=== PATIENT | female | born 1995 | race Two or more races ===

== ENCOUNTER 2022-12-25 11:23 | Emergency (ER) | payer OTHER ==
[~2022-12-25] VITALS: Ht 160 cm; Wt 61.2 kg
[2022-12-25] MEDS ORDERED: PRENATABS FA T1 EACH (12:01)
[2022-12-25 13:05] LABS: HEMOGLOBIN 11.5 g/dL (12.0-15.00); MEAN CELL VOLUME 85.8 fL (80.00-100.00); MEAN CORPUSCULAR HEMOGLOBIN 29.8 pg (27.00-32.0); MEAN CORPUSCULAR HGB CONC 34.7 g/dl (32.0-36.0); PLATELET COUNT 220 K/uL (150-450); RED BLOOD COUNT 3.84 M/uL (4.00-6.00); RED CELL DISTRIBUTION WIDTH 13.5 % (11.5-14.5)
[2022-12-25] MEDS ORDERED: TUSSIN100 MG/51 PO (14:28)
[2022-12-25] MEDS ORDERED: XOPENEX CO1.25 MG/0. IH (14:28)
== END 2022-12-25 15:30 | disposition home or self-care (01) ==
LOC: ER 11:23
PROVIDERS: General Practice
DX: J45.909 Unspecified asthma, uncomplicated (principal); R06.02 Shortness of breath; Z3A.21 21 weeks gestation of pregnancy; Z20.822 Contact with and (suspected) exposure to COVID-19

== ENCOUNTER 2023-05-07 09:34 | Inpatient (IN) | payer OTHER ==
[~2023-05-07] VITALS: Ht 160 cm; Wt 68.9 kg
[~2023-05-07 09:34] MED LIST: PRENATABS FA T1 EACH; TUSSIN100 MG/51 PO; XOPENEX CO1.25 MG/0. IH
[2023-05-07] MEDS ORDERED: RINGERS SOLUTION,LACTATED 1,000 ML IV SCH (10:15)
[2023-05-07 10:55] LABS: HEMATOCRIT 34.9 % (36.0-45.00); MEAN CELL VOLUME 86.4 fL (80.00-100.00); MEAN CORPUSCULAR HEMOGLOBIN 29.6 pg (27.00-32.0); MEAN CORPUSCULAR HGB CONC 34.3 g/dl (32.0-36.0); PLATELET COUNT 179 K/uL (150-450); RED BLOOD COUNT 4.05 M/uL (4.00-6.00); RED CELL DISTRIBUTION WIDTH 14.3 % (11.5-14.5)
[2023-05-07 11:02] LABS: URINE APPEARANCE Clear; URINE BILIRRUBIN Negative (NEGATIVE); URINE BLOOD Negative; URINE COLOR Yellow; URINE GLUCOSE Negative (NEGATIVE); URINE LEUKOCYTE Negative; URINE NITRATE Negative; URINE PROTEIN Negative (NEGATIVE); URINE UROBILINOGEN 0.2 E.U./dl
[2023-05-07 11:06] LABS: URINE BACTERIA 57.9 uL (0.0-1933); URINE EPITHELIAL CELLS 6.4 uL (0.0-38.8); URINE WBC 13.4 uL (0.0-23.2)
[2023-05-07 11:15] LABS: URINE RBC 1.4 uL (0.0-20.8)
[2023-05-08] MEDS ORDERED: AMPICILLIN SODIUM 2,000 MG VIAL IV STA (08:03)
[2023-05-08] MEDS ORDERED: OXYTOCIN 500 ML IV ONE (08:15)
[2023-05-08] MEDS ORDERED: RINGERS SOLUTION,LACTATED 1,000 ML IV SCH (08:15)
[2023-05-08] MEDS ORDERED: AMPICILLIN SODIUM 1,000 MG VIAL IV SCH (09:00)
[2023-05-08 09:05] LABS: PH,URINE 5.5 (5.0-8.0); URINE APPEARANCE Clear; URINE BILIRRUBIN Negative (NEGATIVE); URINE BLOOD Moderate; URINE COLOR Yellow; URINE GLUCOSE Negative (NEGATIVE); URINE LEUKOCYTE Negative; URINE NITRATE Negative; URINE PROTEIN Negative (NEGATIVE); URINE UROBILINOGEN 0.2 E.U./dl
[2023-05-08 09:07] LABS: HEMOGLOBIN 11.9 g/dL (12.0-15.00); MEAN CELL VOLUME 86.2 fL (80.00-100.00); MEAN CORPUSCULAR HEMOGLOBIN 29.3 pg (27.00-32.0); PLATELET COUNT 181 K/uL (150-450); RED BLOOD COUNT 4.06 M/uL (4.00-6.00); RED CELL DISTRIBUTION WIDTH 14.2 % (11.5-14.5)
[2023-05-08 09:10] LABS: URINE BACTERIA 55.4 uL (0.0-1933); URINE EPITHELIAL CELLS 13.4 uL (0.0-38.8); URINE RBC 197.3 uL (0.0-20.8)
[2023-05-08 09:31] LABS: ALBUMIN 2.9 gm/dL (3.4-5.0); BILIRUBIN TOTAL 0.68 mg/dL (0.3-1.2); CALCIUM 9.5 mg/dL (8.5-10.1); CREATININE SERUM 0.47 mg/dL (0.55-1.02); GFR 156.66; GLOBULINA 3.5 G/DL (2.4-3.5); POTASSIUM 3.99 mEq/L (3.5-5.1); TOTAL PROTEIN 6.4 gm/dL (6.4-8.2)
[2023-05-08 09:34] LABS: INR < 0.93; PROTHROMBIN TIME 9.8 SECONDS (9.0-11.5)
[2023-05-08] MEDS ORDERED: MORPHINE SULFATE 4 MG/ML VIAL IV ONE (10:45)
[2023-05-08] MEDS ORDERED: MORPHINE SULFATE 4 MG/ML CARTRIDGE IV ONE (14:00)
[2023-05-08] MEDS ORDERED: OXYTOCIN 20 UNITS/1000ML RL PIGGYBAG IV ONE (15:37)
[2023-05-08] MEDS ORDERED: ERYTHROMYCIN BASE 1 GM TUBE OP ONE (15:37)
[2023-05-08] MEDS ORDERED: CHLORHEXIDINE GLUCONATE 120 ML BOTTLE TOP ONE (15:37)
[2023-05-08] MEDS ORDERED: OXYTOCIN 10 UNITS/ML VIAL ONE (15:50)
[2023-05-08] MEDS ORDERED: DOCUSATE SODIUM 100MG CAP PO SCH (21:22)
[2023-05-08] MEDS ORDERED: IBUprofen 400 MG TABLET PO PRN (21:30)
[2023-05-08] MEDS ORDERED: CHLORHEXIDINE GLUCONATE 120 ML BOTTLE TOP SCH (22:15)
[2023-05-08] MEDS ORDERED: OXYTOCIN 10 UNITS/ML VIAL IM STA (22:15)
[2023-05-08] MEDS ORDERED: LIDOCAINE HCL 1% 200MG/20ML VIAL IJ SCH (22:15)
[2023-05-08] MEDS ORDERED: ERYTHROMYCIN BASE 1 GM TUBE OP SCH (22:15)
[2023-05-08 22:34] LABS: ABG PH 7.328 (7.35-7.45); ABG PO2 46.3 mmHg (80-100); ABG pCO2 30.1 mmHg (35-45); BASE EXCESS -9.1 mmol/l; BICARBONATE 15.4 mmol/l (23-25); Tco2 16.4 mmol/l
[2023-05-08 22:35] LABS: o2 21 %
[2023-05-08] MEDS ORDERED: OXYTOCIN 1,000 ML IV ONE (22:45)
[2023-05-08] MEDS ORDERED: OXYTOCIN 10 UNITS/ML VIAL IM ONE (22:45)
[2023-05-09 02:43] LABS: HEMATOCRIT 34.4 % (36.0-45.00); HEMOGLOBIN 11.6 g/dL (12.0-15.00); MEAN CELL VOLUME 84.4 fL (80.00-100.00); MEAN CORPUSCULAR HEMOGLOBIN 28.5 pg (27.00-32.0); MEAN CORPUSCULAR HGB CONC 33.8 g/dl (32.0-36.0); PLATELET COUNT 210 K/uL (150-450); RED BLOOD COUNT 4.08 M/uL (4.00-6.00); RED CELL DISTRIBUTION WIDTH 14.6 % (11.5-14.5)
[2023-05-09] MEDS ORDERED: INSULIN LISPRO 1,000 UNIT/10 ML UNITS SUBCUTANEO ONE (21:48)
== END 2023-05-10 17:39 | disposition home or self-care (01) | DRG 807 ==
LOC: OBS/DEL 09:34 → LDR 05-08 08:04 → OB/GYN 05-08 08:04
PROVIDERS: ADMIT Obstetrics & Gynecology; ATTEND Obstetrics & Gynecology
PROC: 10E0XZZ Delivery of Products of Conception, External Approach (ICD-10-PCS; principal; 2023-05-08)
PROC: 0W8NXZZ Division of Female Perineum, External Approach (ICD-10-PCS; 2023-05-08)
PROC: 4A1HXCZ Monitoring of Products of Conception, Cardiac Rate, External Approach (ICD-10-PCS; 2023-05-08)
DX: O41.1230 Chorioamnionitis, third trimester, not applicable or unspecified (principal); Z37.0 Single live birth; Z3A.40 40 weeks gestation of pregnancy; Z20.822 Contact with and (suspected) exposure to COVID-19